=== PATIENT | male | born 1970 | race Caucasian/White ===

== ENCOUNTER 2016-12-10 10:02 | Emergency (ER) | payer OTHER ==
[~2016-12-10] VITALS: Ht 180.3 cm; Wt 100.0 kg
[2016-12-10] MEDS ORDERED: KETOROLAC 30MG/ML VIAL IV STA (10:37)
[2016-12-10] MEDS ORDERED: HYDRALAZINE 20MG/ML VIAL IV ONE (10:45)
[2016-12-10 11:07] LABS: CHLORIDE 104 mEq/L (98-107)
[2016-12-10 11:08] LABS: BASOPHILS % 0.9 % (0.0-2.0); EOSINOPHILS % 0.6 % (0.0-5.0); HEMATOCRIT. 43.6 % (42.0-52.0); HEMOGLOBIN. 15.1 g/dL (14.0-18.0); LYMPHOCYTES % 19.9 % (20.0-50.0); MEAN CORPUSCULAR HEMOGLOBIN 29.2 pg (28.0-32.0); MEAN CORPUSCULAR VOLUME 84.4 fL (80.0-94.0); MEAN PLATELET VOLUME 7.8 fl (7.4-10.4); MONOCYTES % 4.5 % (2.0-8.0); NEUTROPHILS % 74.1 % (40.0-76.0); PLATELET 269 x1000/uL (130-400); RED BLOOD CELL COUNT 5.16 mill/uL (4.7-6.1); RED CELL DISTRIBUTION WIDTH 13.4 % (11.6-14.6)
[2016-12-10 11:09] LABS: INR 1.1
[2016-12-10 11:14] LABS: CARBON DIOXIDE 27 mEq/L (21-32); ETHANOL BLOOD < 10 mg/dL
[2016-12-10] MEDS ORDERED: ONDANSETRON 4MG ODT PO ONE (11:15)
[2016-12-10] MEDS ORDERED: CLONIDINE 0.1MG TABLET PO ONE (11:15)
[2016-12-10] MEDS ORDERED: KETOROLAC 60MG/2ML VIAL IM ONE (11:15)
[2016-12-10 11:39] VITALS: BP 177/116
== END 2016-12-10 11:59 | disposition left against medical advice (07) ==
LOC: ER 10:46
DX: G43.909 Migraine, unspecified, not intractable, without status migrainosus (principal); I10 Essential (primary) hypertension; G89.29 Other chronic pain; Z88.8 Allergy status to other drugs, medicaments and biological substances; F17.200 Nicotine dependence, unspecified, uncomplicated
CPT/HCPCS: 36415; 80053; 85025; 85610; 93005; 96372; 99285; G0482; J1885; Q0162; Z7610

== ENCOUNTER 2022-03-12 09:34 | Emergency (ER) | payer MEDICAID, OTHER ==
[~2022-03-12] VITALS: Ht 180.3 cm; Wt 91.0 kg
[2022-03-12 09:59] VITALS: BP 166/102
[2022-03-12] MEDS ORDERED: CEPH500C2 MT (10:22)
[2022-03-12] MEDS ORDERED: DOXY100C5 MT (10:22)
[2022-03-12] MEDS ORDERED: LIDOCAINE HCL 1% 20ML VIAL (Pyxis) INJ INFIL ONE (10:30)
[2022-03-12] MEDS ORDERED: CEFTRIAXONE SODIUM 1 G/VIAL IM ONE (10:30)
== END 2022-03-12 11:05 | disposition home or self-care (01) ==
LOC: ER 09:34
DX: S90.862A Insect bite (nonvenomous), left foot, initial encounter (principal); S90.861A Insect bite (nonvenomous), right foot, initial encounter; I10 Essential (primary) hypertension; G43.909 Migraine, unspecified, not intractable, without status migrainosus; W57.XXXA Bitten or stung by nonvenomous insect and other nonvenomous arthropods, initial encounter; Y93.9 Activity, unspecified; Y92.9 Unspecified place or not applicable; Z88.8 Allergy status to other drugs, medicaments and biological substances
CPT/HCPCS: 82962; 96372; 99283; J0696; J3490